=== PATIENT | male | born 1990 | race Caucasian/White ===

== ENCOUNTER 2017-07-11 08:36 | Emergency (ER) | payer SELFPAY ==
[~2017-07-11] VITALS: Ht 175.3 cm; Wt 77.1 kg
[2017-07-11 08:33] VITALS: BP 148/98
[2017-07-11] MEDS ORDERED: Acetaminophen 500mg (ES) tab PO ONE (09:30)
--- NOTE | 2017-07-11 11:54 | Diagnostic Imaging Report ---
Indication: Shortness of breath Technique: One view of the chest Comparison: none Findings: Lungs and pleural spaces are clear. Heart size is normal Impression: No acute process
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
[2017-07-11] MEDS ORDERED: TRAMADOL HCL50 MG ORAL (12:26)
[2017-07-11] MEDS ORDERED: IBUPROFEN600 MG ORAL (12:26)
[2017-07-11 12:41] VITALS: BP 136/85
== END 2017-07-11 12:44 | disposition home or self-care (01) ==
LOC: EDBD 08:36 → EMR 09:15
DX: S06.0X9A Concussion with loss of consciousness of unspecified duration, initial encounter (principal); S20.211A Contusion of right front wall of thorax, initial encounter; V43.62XA Car passenger injured in collision with other type car in traffic accident, initial encounter; Y92.410 Unspecified street and highway as the place of occurrence of the external cause; L98.9 Disorder of the skin and subcutaneous tissue, unspecified; M25.511 Pain in right shoulder
CPT/HCPCS: 71045; 72040; 99284